=== PATIENT | male | born 1935 | race Caucasian/White ===

== ENCOUNTER 2020-10-01 10:11 | Outpatient (REF) | payer MEDICARE, SELFPAY ==
[2020-10-01 14:38] LABS: Alanine Aminotransferase 7 U/L (0-40); Anion Gap 14 (12-20); Blood Urea Nitrogen 18 mg/dL (9-16); Carbon Dioxide 25 mmol/L (22-29); Chloride 106 mmol/L (96-108); Cholesterol 177 mg/dL; Estimated Glomerular Filt Rate > 60; HDL Cholesterol 35 mg/dL; LDL Cholesterol Calculated 127 mg/dl; Potassium 4.4 mmol/L (3.3-5.1); Sodium 141 mmol/L (135-145); Triglycerides 76 mg/dL
== END 2020-10-01 10:12 | disposition home or self-care (01) ==
LOC: HO.10HDL 10:11
PROVIDERS: Visit Provider Family Medicine
DX: I10 Essential (primary) hypertension (principal); E78.00 Pure hypercholesterolemia, unspecified; Z79.899 Other long term (current) drug therapy
CPT/HCPCS: 36415; 80051; 80061; 82550; 82565; 84460; 84520

== ENCOUNTER 2021-04-21 12:22 | Outpatient (REF) | payer MEDICARE, SELFPAY ==
[2021-04-21 13:50] LABS: Hematocrit 33.6 % (42-52); Hemoglobin 10.3 g/dl (14.0-18.0); Mean Corpuscular HGB Conc 30.7 g/dl (31.0-36.0); Mean Corpuscular Hemoglobin 27.2 pg (27.0-33.0); Mean Corpuscular Volume 88.7 fL (80-98); Mean Platelet Volume 8.8 fL (9.4-12.4); Platelet Count 130 X10*3/uL (160-400); Red Blood Count 3.79 X10*6/uL (4.60-5.80); Red Cell Distribution Width 15.2 % (11.0-16.0)
[2021-04-21 13:55] LABS: WBC ABN SCTR FOR CBC 1
[2021-04-21 14:04] LABS: Alanine Aminotransferase < 6 U/L (0-40); Albumin Level 4.1 g/dL (3.5-5.0); Alkaline Phosphatase 74 U/L (39-117); Anion Gap 12 (12-20); Aspartate Amino Transferase 20 U/L (5-37); Bilirubin Total 0.8 mg/dL (0.0-1.0); Blood Urea Nitrogen 17 mg/dL (9-16); Calcium 9.5 mg/dL (8.4-10.2); Carbon Dioxide 26 mmol/L (22-29); Chloride 109 mmol/L (96-108); Estimated Glomerular Filt Rate > 60; Glucose Random 103 mg/dL (60-115); Potassium 5.2 mmol/L (3.3-5.1); Sodium 142 mmol/L (135-145)
[2021-04-21 14:47] LABS: Atypical Lymphs Percent Manual 4 % (0-6); Band Neutrophils Percent 1 % (3-5); Lymphocytes Percent Manual 73 % (20-40); Monocytes Percent Manual 7 % (2-11); Neutrophils Percent Manual 15 % (45-73)
[2021-04-21 14:49] LABS: Ovalocytes 1+ (5-14) /OIF; Platelet Estimate SLIGHTLY DECREASED (NORMAL); Platelet Morphology Comment NORMAL; RBC Morphology NOTED
[2021-04-21 14:50] LABS: White Blood Count 21.5 X10*3/uL (4.8-10.8)
[2021-04-21 14:52] LABS: Smudge Cells PRESENT
[2021-04-21 14:58] LABS: Atypical Lymph Absolute Manual 0.9 x10*3/uL; Lymphocytes Absolute Manual 15.7 X10*3/uL (0.6-4.8); Monocytes Absolute Manual 1.5 X10*3/uL (0.0-1.2); Neutrophils Absolute Manual 3.4 X10*3/uL (2.2-7.9)
[2021-04-22 11:33] LABS: Lactate Dehydrogenase 163 U/L (118-273)
[2021-04-23 13:36] LABS: Beta-2 Microglobulin, Serum 4.97 mg/L (< OR = 2.51)
== END 2021-04-21 12:23 | disposition home or self-care (01) ==
LOC: HO.LAB 12:22
PROVIDERS: PCP Family Medicine; Visit Provider Family Medicine
DX: E78.00 Pure hypercholesterolemia, unspecified (principal); I10 Essential (primary) hypertension; R63.4 Abnormal weight loss; Z79.899 Other long term (current) drug therapy
CPT/HCPCS: 36415; 80053; 82232; 82550; 83615; 85007; 85027; 88184; 88185

== ENCOUNTER 2021-09-29 12:34 | Outpatient (REF) | payer MEDICARE, SELFPAY ==
[2021-09-29 13:09] LABS: Hematocrit 30.3 % (42.0-52.0); Hemoglobin 8.7 g/dl (14.0-18.0); Mean Corpuscular HGB Conc 28.7 g/dl (31.0-36.0); Mean Corpuscular Hemoglobin 25.4 pg (27.0-33.0); Mean Corpuscular Volume 88.3 fL (80.0-98.0); Mean Platelet Volume 9.1 fL (9.4-12.4); NRBC Pct Auto 0.2 /100WBC (0.0-0.2); Platelet Count 120 X10*3/uL (160-400); Red Blood Count 3.43 X10*6/uL (4.60-5.80); Red Cell Distribution Width 16.8 % (11.0-16.0)
[2021-09-29 13:16] LABS: WBC ABN SCTR FOR CBC 1
[2021-09-29 13:35] LABS: Iron 29 mcg/dL (45-160); Percent Iron Saturation 8 % (15-50); Total Iron Binding Capacity 381 mcg/dL (228-428); Unsaturated Iron Binding 352 ug/dL
[2021-09-29 13:45] LABS: Band Neutrophils Percent 0 % (3-5); Eosinophils Percent Manual 1 % (0-4); Lymphocytes Percent Manual 82 % (20-40); Monocytes Percent Manual 2 % (2-11); Neutrophils Percent Manual 15 % (45-73)
[2021-09-29 13:47] LABS: Hypochromasia 1+ (5-14) /OIF; Ovalocytes 1+ (5-14) /OIF; Platelet Estimate DECREASED (NORMAL); Platelet Morphology Comment NORMAL; Polychromasia 1+ (0-2) /OIF; RBC Morphology NOTED; Smudge Cells PRESENT
[2021-09-29 13:48] LABS: Eosinophils Absolute Manual 0.3 X10*3/uL (0.0-0.4); Lymphocytes Absolute Manual 22.5 X10*3/uL (1.2-4.9); Monocytes Absolute Manual 0.5 X10*3/uL (0.1-1.2); Neutrophils Absolute Manual 4.1 X10*3/uL (2.0-8.3); White Blood Count 27.4 X10*3/uL (4.8-10.8)
== END 2021-09-29 12:35 | disposition home or self-care (01) ==
LOC: HO.LAB 12:34
PROVIDERS: PCP Family Medicine; Visit Provider Family Medicine
DX: C91.10 Chronic lymphocytic leukemia of B-cell type not having achieved remission (principal)
CPT/HCPCS: 36415; 83540; 85007; 85025; 85027

== ENCOUNTER 2022-01-27 08:54 | Outpatient (REF) | payer MEDICARE, SELFPAY ==
--- NOTE | ~2022-01-27 | US_ITS ---
EXAMINATION: US ABDOMEN COMPLETE CLINICAL INFORMATION: CLL and left upper quadrant mass. COMPARISON: Ultrasound abdomen complete dated 03/28/2015. CT abdomen and pelvis without and with contrast dated 12/15/2010. TECHNIQUE: Real-time imaging of the abdominal viscera. FINDINGS: PANCREAS: The head and body are normal. The tail is not well visualized due to bowel gas. ABDOMINAL AORTA: Normal in caliber. There is evidence of mild atherosclerotic disease. INFERIOR VENA CAVA: Visualized portions are normal. LIVER: Liver is normal in size and contour. Liver echotexture is slightly increased. There are numerous cysts. Largest measure 2.2 x 2.5 x 2.6 cm in the left lobe and 1.5 x 1.5 x 1.7 cm in the right lobe. Small calcification high in the dome of the liver. No other focal liver lesion.. There is no intrahepatic biliary duct dilatation seen. GALLBLADDER: The gallbladder is physiologically distended without evidence of stones, sludge, polyps, wall thickening or pericholecystic fluid. COMMON BILE DUCT: Normal in caliber measuring 0.36 cm in diameter. RIGHT KIDNEY: There is a 2 cm cyst in the lower pole. There are scattered echogenic foci seen throughout the right kidney. No hydronephrosis or renal calculi. The kidney measures 9.0 cm in maximum dimension. LEFT KIDNEY: There are scattered echogenic foci seen throughout the left kidney. No hydronephrosis. No renal calculi or focal parenchymal lesions. The kidney measures 11.5 cm in maximum dimension. SPLEEN: The spleen is enlarged. The spleen measures 22.1 cm in maximum dimension. There is a 0.6 x 0.6 x 0.8 cm echogenic lesion in the spleen. FREE FLUID: None. US/US abdomen complete IMPRESSION: Enlarged spleen and 7 mm echogenic lesion in the spleen. Slightly echogenic liver and multiple liver cysts. Small right renal cyst. Numerous echogenic foci throughout both kidneys questionable for small calcifications versus cyst wall interfaces from microcystic disease.
[2022-01-27 11:34] LABS: Hematocrit 31.4 % (42.0-52.0); Hemoglobin 9.5 g/dl (14.0-18.0); Mean Corpuscular HGB Conc 30.3 g/dl (31.0-36.0); Mean Corpuscular Hemoglobin 28.7 pg (27.0-33.0); Mean Corpuscular Volume 94.9 fL (80.0-98.0); Mean Platelet Volume 9.5 fL (9.4-12.4); NRBC Pct Auto 0.1 /100WBC (0.0-0.2); Platelet Count 112 X10*3/uL (160-400); Red Blood Count 3.31 X10*6/uL (4.60-5.80); Red Cell Distribution Width 15.6 % (11.0-16.0)
[2022-01-27 11:38] LABS: WBC ABN SCTR FOR CBC 1
[2022-01-27 11:49] LABS: Anion Gap 10 (12-20); Blood Urea Nitrogen 25 mg/dL (9-16); Carbon Dioxide 30 mmol/L (22-29); Chloride 106 mmol/L (96-108); Estimated Glomerular Filt Rate > 60; Iron 37 mcg/dL (45-160); Percent Iron Saturation 10 % (15-50); Potassium 4.9 mmol/L (3.3-5.1); Sodium 141 mmol/L (135-145); Total Iron Binding Capacity 363 mcg/dL (228-428); Unsaturated Iron Binding 326 ug/dL
[2022-01-27 11:56] LABS: Lymphocytes Percent Manual 89 % (20-40); Monocytes Percent Manual 7 % (2-11); Neutrophils Percent Manual 4 % (45-73)
[2022-01-27 11:58] LABS: RBC Morphology NOTED
[2022-01-27 11:59] LABS: Acanthocytes 1+ (0-2) /OIF; Macrocytosis 1+ (5-14) /OIF; Microcytosis 1+ (5-14) /OIF; Ovalocytes 1+ (5-14) /OIF; Polychromasia 1+ (0-2) /OIF; Tear Drop Cells 1+ (0-2) /OIF
[2022-01-27 12:00] LABS: Platelet Estimate DECREASED (NORMAL); Platelet Morphology Comment NORM
[2022-01-27 12:02] LABS: Lymphocytes Absolute Manual 30.5 X10*3/uL (1.2-4.9); Monocytes Absolute Manual 2.4 X10*3/uL (0.1-1.2)
[2022-01-27 12:07] LABS: White Blood Count 34.3 X10*3/uL (4.8-10.8)
[2022-01-27 14:37] LABS: Band Neutrophils Percent 0 % (3-5); Neutrophils Absolute Manual 1.4 X10*3/uL (2.0-8.3)
== END 2022-01-27 08:55 | disposition home or self-care (01) ==
LOC: HO.HMGCX 08:54
PROVIDERS: Visit Provider Family Medicine
DX: C91.10 Chronic lymphocytic leukemia of B-cell type not having achieved remission (principal); R19.02 Left upper quadrant abdominal swelling, mass and lump
CPT/HCPCS: 36415; 76700; 80051; 82565; 83540; 84520; 85007; 85027

== ENCOUNTER → 2022-02-18 14:14 | Outpatient (BNV) | payer MEDICARE, SELFPAY | PROVIDERS: PCP Family Medicine; Referring Provider Family Medicine; Visit Provider Internal Medicine Medical Oncology | DX: D47.9 Neoplasm of uncertain behavior of lymphoid, hematopoietic and related tissue, unspecified (principal) | CPT/HCPCS: 99204; 99213 ==

== ENCOUNTER → 2022-04-02 14:51 | Outpatient (REF) | payer MEDICARE, SELFPAY ==
--- NOTE | 2022-04-02 14:54 | CA_ITS ---
Transthoracic Echocardiogram Patient (Last, First, Middle): Rick Calles D Gender: Male Date of : 1935 Age: 86 Procedure Date: 04/02/2022 Procedure Type: Transthoracic Echocardiogram Location: OP Height: 167.64 cm Weight: 69.85 kg BSA: 1.79 m2 Heart Rate: 61 bpm BP: 118 / 72 mmHg Nurse Clinical: SB Referring MD: Rachid Rahman MD Symptoms: R01.1 SYSTOLIC AND DIASTOLIC MURMURS R/O /AT Study Quality: Adequate ECG Rhythm: Sinus Conclusions: - The left ventricular systolic function is normal. The visually estimated ejection fraction is between 65-70%. - There is mild calcification of the aortic valve. - There is mild mitral annular calcification. There is mild mitral valve regurgitation. 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 Findings Left Ventricle Normal left ventricular cavity size. There is normal left ventricular wall thickness. The left ventricular systolic function is normal. The visually estimated ejection fraction is between 65-70%. There is no evidence of regional wall motion abnormalities. Diastolic function is normal for age. Right Ventricle Normal right ventricular cavity size and systolic function. Atria The left atrium is mildly dilated. The right atrium is normal in size. Aortic Valve There is a normal trileaflet aortic valve. There is mild calcification of the aortic valve. There is no aortic valve stenosis. There is no aortic valve regurgitation. Mitral Valve There is mild mitral annular calcification. There is mild mitral valve regurgitation. There is no mitral valve stenosis. Pulmonic Valve The pulmonic valve is likely normal. Tricuspid Valve Normal tricuspid valve structure. There is trace tricuspid valve regurgitation. The pulmonary artery systolic pressure is normal. 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 Venous The inferior vena cava is normal in size and collapses less than 50% with inspiration. Pericardium/Pleural There is no evidence of pericardial effusion. Prior Study Comparison Changes noted compared to prior study dated: 07/09/2015. Increase in ascending aortic size. Measurements 2D Linear Measurements IVSd: 0.74 0.6-0.9/0.6-1.0 cm LVIDd: 5.29 3.9-5.3/4.2-5.9 cm LVIDd Index: 2.96 2.4-3.2/2.2-3.1 cm/m2 LVIDs: 3.19 2.0-3.6 cm LVPWd: 0.79 0.7-1.1 cm LA Diam: 4.50 2.7-3.8/3.0-4.0 cm LAIDs Index: 2.51 1.5-2.3 cm/m2 LV Mass: 175.22 67-162/88-224 g LV Mass Index: 97.89 43-95/49-115 g/m2 LVOT Diam: 2.20 3.0+(-)1.3 cm 2D Systolic Function EF 4C: 69.60 >55% EF 2C: 77.20 >55% EF BiP: 73.90 >55% Mitral Valve MV Pk E: 0.83 MV PK A: 0.99 MV Decel Time: 267.00 E/A: 0.80 E'Lateral: 6.96 E'Medial: 6.64 E/E' Med: 12.50 E/E' Lat: 12.00 PHT: 78.00 MVA PHT: 2.82 Decel Sterling: 3.12 Aortic Valve AoV Pk [place]: 2.00 AoV Mn [place]: 1.34 AoV VTI: 0.43 AoV Pk Grad: 16.00 Aov Mn Grad: 8.00 WILLAM Cont.VTI: 2.21 LVOT LVOT Pk [place]: 1.17 LVOT Mn [place]: 0.79 LVOT VTI: 0.25 LVOT Pk Grad: 5.00 LVOT Mn Grad: 3.00 LVOT Diam: 2.20 LVOT Area: 3.80 Diastolic Function MV Pk E: 0.83 MV Pk A: 0.99 E/A: 0.80 E'Medial: 6.64 E/E' Med: 12.50 E' Laterial: 6.96 E/E' Lat: 12.00 Right Ventricle TAPSE (mm): 22.10 TVS' [place]: 13.60 Tricuspid Valve TR Pk [place]: 2.62 TR Pk Grad: 27.00 RA Press: 8.00 RVSP: 35.00 Great Vessels Aorta Sinus of Valsalva: 4.00 2.0-3.5 cm Ao Asc: 4.00 2.1-3.4 cm Pulmonary Veins Pulm Vein S/D 1.80 Pulmonary Valve PV Pk Raleigh: 1.03 Peak PV Grad: 4.00 Updated in Other Vendor System with Status of Final Derik Don MD electronically signed on 04/03/2022 1:32:39 PM with status of Final
== END ==
LOC: HO.CARD 14:51
PROVIDERS: PCP Family Medicine; Visit Provider Family Medicine
DX: R01.1 Cardiac murmur, unspecified (principal)
CPT/HCPCS: 93306

== ENCOUNTER 2022-12-22 15:29 | Outpatient (REF) | payer MEDICARE, SELFPAY ==
[2022-12-22 16:08] LABS: Hemoglobin 9.5 g/dl (14.0-18.0); Mean Platelet Volume 9.7 fL (9.4-12.4); NRBC Pct Auto 0.3 /100WBC (0.0-0.2); PLT CLUMP 1
[2022-12-22 16:10] LABS: Hematocrit 31.6 % (42.0-52.0); Mean Corpuscular HGB Conc 30.1 g/dl (31.0-36.0); Mean Corpuscular Hemoglobin 30.1 pg (27.0-33.0); Red Blood Count 3.16 X10*6/uL (4.60-5.80); Red Cell Distribution Width 15.7 % (11.0-16.0)
[2022-12-22 16:17] LABS: WBC ABN SCTR FOR CBC 1
[2022-12-22 16:18] LABS: White Blood Count 32.3 X10*3/uL (4.8-10.8)
[2022-12-22 16:19] LABS: Platelet Count 99 X10*3/uL (160-400)
[2022-12-22 16:44] LABS: Atypical Lymph Absolute Manual 3.2 x10*3/uL; Atypical Lymphs Percent Manual 10 % (0-6); Basophils Abs Manual 0.3 X10*3/uL (0.0-0.2); Basophils Percent Manual 1 % (0-2); Lymphocytes Absolute Manual 23.3 X10*3/uL (1.2-4.9); Lymphocytes Percent Manual 72 % (20-40); Monocytes Absolute Manual 2.6 X10*3/uL (0.1-1.2); Monocytes Percent Manual 8 % (2-11); Neutrophils Percent Manual 9 % (45-73)
[2022-12-22 16:45] LABS: Macrocytosis 2+ (15-30) /OIF; RBC Morphology NOTED
[2022-12-22 16:46] LABS: Platelet Estimate DECREASED (NORMAL); Platelet Morphology Comment NORMAL; Polychromasia 2+ (3-5) /OIF
[2022-12-22 16:47] LABS: Band Neutrophils Percent 0 % (3-5); Neutrophils Absolute Manual 2.9 X10*3/uL (2.0-8.3)
[2022-12-22 16:52] LABS: Alanine Aminotransferase 11 U/L (0-40); Anion Gap 10 (12-20); Aspartate Amino Transferase 33 U/L (5-37); Blood Urea Nitrogen 18 mg/dL (9-16); Carbon Dioxide 30 mmol/L (22-29); Chloride 108 mmol/L (96-108); Estimated Glomerular Filt Rate > 60; Sodium 143 mmol/L (135-145)
== END 2022-12-22 15:30 | disposition home or self-care (01) ==
LOC: HO.LAB 15:29
PROVIDERS: PCP Family Medicine; Visit Provider Family Medicine
DX: I10 Essential (primary) hypertension (principal); E78.00 Pure hypercholesterolemia, unspecified; C91.10 Chronic lymphocytic leukemia of B-cell type not having achieved remission; Z79.899 Other long term (current) drug therapy
CPT/HCPCS: 36415; 80051; 82550; 82565; 84450; 84460; 84520; 85007; 85025; 85027

== ENCOUNTER 2023-03-23 08:42 | Emergency (ER) | payer MEDICARE, SELFPAY ==
--- NOTE | ~2023-03-23 | XR_ITS ---
EXAMINATION: XR BILATERAL HIPS WITH AP PELVIS CLINICAL INFORMATION: Pain status post fall. COMPARISON: None available. TECHNIQUE: AP view of the pelvis and single views of each hip were obtained. FINDINGS: The patient is status post bilateral hip arthroplasty showing good anatomic alignment and no evidence for hardware malfunction. Bilateral cerclage wires are intact as well. There is generalized osteopenia. No acute fractures seen. The soft tissues are unremarkable. XR/XR hips PAULA min 3V IMPRESSION: Generalized osteopenia without overt fracture or hardware abnormality.
--- NOTE | ~2023-03-23 | CT_ITS ---
EXAMINATION: CT HEAD WITHOUT CONTRAST CLINICAL INFORMATION: Status post fall with head trauma, rule out intracranial abnormality. COMPARISON: Head CT scan dated 05/16/2013. TECHNIQUE: Contiguous axial imaging was performed from the skull base to vertex without intravenous administration of contrast. Coronal and sagittal reformatted images were obtained. This CT examination was performed using dose optimization techniques as appropriate, variously including the following: *Automated exposure control *Adjustment of mA and/or kV according to patient size (this includes techniques or standardized protocols for targeted exams where dose is matched to indication/reason for exam; i.e. extremities or head) *Use of iterative reconstruction technique DLP: 724.32 mGy-cm FINDINGS: There is mild widening of the cortical sulci and associated ventriculomegaly. The lateral ventricles are symmetrical. The third and fourth ventricles are in their normal midline position. The basilar and prepontine cisterns are unremarkable. There is no acute intra or extracerebral abnormality. There is no mass effect or midline shift. Sections through the bony calvarium are unremarkable. The orbits are intact. The paranasal sinuses are clear. The mastoid air cells are clear. Mild anterior nasal septal deviation. CT/CT head/brain wo IV con IMPRESSION: No acute intracranial pathology.
--- NOTE | ~2023-03-23 | CT_ITS ---
EXAMINATION: CT HIP WITHOUT CONTRAST, LEFT CLINICAL INFORMATION: Left hip pain. Unable to bear weight. Left hip arthroplasty. COMPARISON: Left hip radiographs dated 03/08/2018 and 03/23/2023. TECHNIQUE: Multidetector volumetric imaging was obtained through the left hip without contrast material. Multiplanar reformatted images were submitted in coronal and sagittal planes. This CT examination was performed using dose optimization techniques as appropriate, variously including the following: *Automated exposure control *Adjustment of mA and/or kV according to patient size (this includes techniques or standardized protocols for targeted exams where dose is matched to indication/reason for exam; i.e. extremities or head) *Use of iterative reconstruction technique DLP: 183 mGy-cm. FINDINGS: Redemonstration of a left hip arthroplasty with a proximal femoral cerclage wire. No hardware fracture. No perihardware lucency to suggest loosening or infection. The femoral component is again noted to be asymmetrically seated within the acetabulum, slightly subluxed superolaterally. Findings are unchanged when compared to prior examinations and consistent with asymmetric wear. There is a nondisplaced, oblique fracture through the posterior aspect of the proximal femur in the region of the greater trochanter, new when compared to the prior examination and consistent with an acute fracture. The fracture gap measures up to 0.3 cm in greatest dimension. No acetabular fracture. No abnormal soft tissue mass or fluid collection. The visualized intrapelvic structures are grossly intact. CT/CT hip LT wo IV con IMPRESSION: 1. Nondisplaced, oblique fracture through the posterior aspect of the proximal femur in the region of the greater trochanter, new when compared to the prior examination. The fracture gap measures up to 0.3 cm in greatest dimension. 2. Left hip arthroplasty without evidence of hardware complication. The femoral component is again noted to be asymmetrically seated within the acetabulum, slightly subluxed superolaterally. Findings are unchanged when compared to prior examinations and consistent with asymmetric wear.
--- NOTE | ~2023-03-23 | CT_ITS ---
EXAMINATION: CT CERVICAL SPINE WITHOUT CONTRAST CLINICAL INFORMATION: Neck pain status post fall. COMPARISON: None available. TECHNIQUE: Multiple axial images of the cervical spine were obtained without the administration of intravenous contrast. Coronal and sagittal reformatted images were obtained. This CT examination was performed using dose optimization techniques as appropriate, variously including the following: *Automated exposure control *Adjustment of mA and/or kV according to patient size (this includes techniques or standardized protocols for targeted exams where dose is matched to indication/reason for exam; i.e. extremities or head) *Use of iterative reconstruction technique DLP: 462.07 mGy-cm FINDINGS: There is straightening of the normal cervical lordosis. Mild to moderate degenerative disc disease is seen at C4-C5 and C5-C6, more pronounced at C5-C6 with moderate anterior osteophyte formation. The vertebral bodies are intact. The odontoid process is intact with mild to moderate articulating degenerative changes. The facet joints are unremarkable. The spinous and transverse processes are intact. The cervical soft tissues are unremarkable. There is no lymphadenopathy. Moderate atherosclerosis is seen in the carotid bulbs bilaterally. There is no lymphadenopathy. Visualized lung apices are clear. CT/CT cervical spine wo IV con IMPRESSION: Multilevel degenerative changes as detailed above without acute abnormality.
[2023-03-23 08:45] VITALS: BP 146/77; PULSE 85; RESP 16; TEMP 36.8; O2SAT 96; BMI 23.4
[2023-03-23 09:01] VITALS: BP 143/82; PULSE 82; RESP 16; TEMP 37.4; O2SAT 95
[2023-03-23 09:17] VITALS: BP 143/82; PULSE 80; RESP 18; TEMP 37.4; O2SAT 96
--- NOTE | 2023-03-23 09:44 | PC.NURSE ---
per daughter, pt s/p fall this am in his drive way hitting his head. pt takes an asa daily. pt has had jr hip replacement at the age of 49yrs. daughter also states that the pt s/p fall last week. pt has a large area of purple/yellow discoloration to r hip. no bruising/hematoma noted to l hip. md at bedside pt/daughter aware of plan of care.
--- NOTE | 2023-03-23 10:04 | ED_ITS ---
HPI - Fall General Chief Complaint: General Medical Stated Complaint: Fall Head & Hip Pain Time Seen by Provider: 03/23/23 09:25 Source: patient, family and old records reviewed Mode of arrival: ambulatory Limitations: no limitations History of Present Illness HPI Narrative: 87 yo male with hx of CLL sees Dr. Chung, HTN, not on blood thinners most recently tripped over his cat last week injuring R hip had bruise but denied treatment today was trying to get to the car and tripped injuring head and L hip he now cannot bear weight on L hip. He finally agreed to treatment no LOC. He has most pain in L hip. He is not forthcoming with his falls as he does not want to be taken to the doctor. MD complaint: fall Onset (ago): week(s) (1) Fall from: standing Fall witnessed: yes, by family Place fall occurred: home Loss of consciousness: none Prolonged down time: no Symptoms prior to fall: none Context: tripped/slipped Location of injury: head and pelvis Severity: moderate Quality: dull Associated symptoms (after fall): unable to walk Related Data Home Medications Medication Instructions Recorded Confirmed amlodipine 5 mg-benazepril 20 mg 1 cap PO DAILY 02/18/22 01/21/23 capsule aspirin 81 mg tablet,delayed 81 mg PO DAILY 02/18/22 01/21/23 release atorvastatin 40 mg tablet 1 tab PO BEDTIME 02/18/22 01/21/23 hydrochlorothiazide 12.5 mg tablet 12.5 mg PO DAILY 02/18/22 01/21/23 iron 18 mg tablet 65 mg PO BID 02/18/22 01/21/23 multivitamin 1 tab PO DAILY 02/18/22 01/21/23 Allergies Allergy/AdvReac Type Severity Reaction Status Date / Time No Known Allergies Allergy Unverified 01/21/23 09:20 [No Known Allergies*] Review of Systems Review of Systems: Constitutional : No Fever, No Chills ENT/Mouth : No Ear Pain, No Hoarseness, No sore throat Eyes: No Eye Pain, No Swelling, No Redness, No Foreign Body Cardiovascular : No Chest Pain, No SOB Respiratory : No Cough, No Dyspnea Gastrointestinal : No Nausea, No Vomiting, No Diarrhea, No abdominal Pain Genitourinary : No Dysuria, No Hematuria Musculoskeletal : positive joint pain, No Myalgias, No Joint Swelling Skin : No Skin lacerations, No rash Neuro : No Weakness, No Numbness, No Loss of Consciousness, No Dizziness, No Headache Psych : No Anxiety/Panic, No Depression Heme/Lymph: no easy bruising, no Lymphadenopathy All other systems reviewed and are negative [facility] Past Medical History Attestation statement: The following information was validated with the patient. Medical History History of chronic lymphocytic leukemia Hyperlipidemia Hypertension Surgical History History of hip surgery History of rotator cuff surgery Family History Family History Brother Lung cancer Renal cancer Social History Social History Household Members: None Housing: House Are you a primary pet care worker to a significant other at home: No Do you presently have visiting nurse or other home services: Yes (daughters) Alcohol intake: never Patient Tobacco Use Status: Never used Tobacco Smoked in Last 30 Days: No Use of substances other than those prescribed or required for medical reasons: No Advance Directives: No service: No Current occupational status: retired Physical Exam Vital Signs: Vital Signs: Last Vital Signs Temp 98.9 F 03/23/23 14:09 Pulse 79 03/23/23 14:09 Resp 20 03/23/23 14:09 BP 145/73 H 03/23/23 14:09 Pulse Ox 98 03/23/23 14:09 O2 Del Method Room Air 03/23/23 14:09 BMI result Body Mass Index 23.4 Appearance: Alert. Oriented X3. No acute distress. Eyes: Pupils equal, round and reactive to light. ENT: Pharynx normal. Neck: Normal inspection. Neck supple. CVS: Normal heart rate and rhythm. Pulses normal. Respiratory: No respiratory distress. Breath sounds normal. Abdomen: Soft and nontender. Skin: Skin warm and dry. pale skin color. Normal skin turgor. Extremities: L hip ttp along joint itselt but no hematoma or infection noted. large bruise along R hip area but not tense and distal both legs he is NV intact Neuro: Oriented X 3. No motor deficit. No sensory deficit. Course Course Course Narrative: doubt fracture would need anything hardware intact. WB as tolerated will confirm with orthopedics Reevaluation(s) Reevaluation #1: did well with walker, feels okay to go home, they decline services at home. Medical Decision Making Medical Decision Making [facility] Narrative: 87 yo male with hx of CLL sees Dr. Chung, HTN, not on blood thinners here with c/o trip and fall one week ago R hip injury now with contusion just fell again today getting into car denies CP/SOB at this time has L hip pain and cannot bear weight at this time he did hit head but no LOC will obtain CT head/cspine given age cannot rule out will obtain xrays of both hips and if he cannot bear weight may need CT scan of L hip. Given falls and hx of CLL I am going to obtain basic labs. Differential Diagnosis Differential Diagnoses: The differential diagnosis associated with the presentation includes anemia, dehydration, FTT, fracture, head and neck trauma Admission/Observation Consideration of admission/observation: Escalation of care including admission/observation considered does not want acute rehab Consult Healthcare Provider Management of the patient was discussed with: Pl Sql Programmer discussed with orthopedics - walker with DANICA Lab Data [facility] Lab Attestation statement: I reviewed the patient's lab results. 03/23/23 10:37 03/23/23 10:37 Labs: Lab Results 03/23/23 03/23/23 03/23/23 Range/Units 10:36 10:37 10:37 WBC 38.8 H* (4.8-10.8) X10*3/uL RBC 2.52 L D (4.60-5.80) X10*6/uL Hgb 7.9 L D (14.0-18.0) g/dl Hct 25.8 L D (42.0-52.0) % MCV 102.4 H (80.0-98.0) fL MCH 31.3 (27.0-33.0) pg MCHC 30.6 L (31.0-36.0) g/dl RDW 16.8 H (11.0-16.0) % Plt Count 80 L (160-400) X10*3/uL MPV 9.1 L (9.4-12.4) fL Immature Gran % (Auto) Cancelled Neut % (Auto) Cancelled Lymph % (Auto) Cancelled Sibley % (Auto) Cancelled Eos % (Auto) Cancelled Baso % (Auto) Cancelled Lymph # (Auto) Cancelled Sibley # (Auto) Cancelled Eos # (Auto) Cancelled Baso # (Auto) Cancelled Abs Immat Gran (auto) Cancelled Absolute Neuts (auto) Cancelled Absolute Nucleated RBC 0.180 H (0.0-0.012) X10*3/uL Nucleated RBC % (auto) 0.5 H (0.0-0.2) /100WBC Neutrophils % (Manual) 15 L (45-73) % Band Neutrophils % 1 L (3-5) % Lymphocytes % (Manual) 74 H (20-40) % Atypical Lymphs % (Man) 1 (0-6) % Monocytes % (Manual) 7 (2-11) % Eosinophils % (Manual) 2 (0-4) % Basophils % (Manual) Metamyelocytes % Myelocytes % Promyelocytes % Blast Cells % (Manual) Plasma Cell % (Manual) Abs Neuts (Manual) 6.2 (2.0-8.3) X10*3/uL Lymphocytes # (Manual) 28.7 H (1.2-4.9) X10*3/uL Atyp Lymphs # (Manual) 0.4 x10*3/uL Monocytes # (Manual) 2.7 H (0.1-1.2) X10*3/uL Eosinophils # (Manual) 0.8 H (0.0-0.4) X10*3/uL Basophils # (Manual) Metamyelocytes # Myelocytes # Promyelocytes # Blast Cells # Plasma Cell # (Manual) Nucleated RBCs Hypersegmented Neuts Smudge Cells Toxic Granulation Toxic Vacuolation Dohle Bodies Mode Rods WBC Morphology Comment Platelet Estimate DECREASED (NORMAL) Large Platelets Giant Platelets Plt Morphology Comment NORMAL RBC Morphology NOTED Polychromasia Hypochromasia Basophilic Stippling Microcytosis Macrocytosis 1+ (5-14) /OIF Spherocytes Pappenheimer Bodies Sickle Cells Target Cells Tear Drop Cells Ovalocytes Stomatocytes Aguirre-Homecroft Bodies Lizeth Cells Acanthocytes (Spur) Rouleaux Schistocytes PT 12.7 (11.1-13.3) SEC INR 1.0 (0.9-1.1) Sodium (135-145) mmol/L Potassium (3.3-5.1) mmol/L Chloride (96-108) mmol/L Carbon Dioxide (22-29) mmol/L Anion Gap (12-20) BUN (9-16) mg/dL Creatinine (0.5-1.4) mg/dL Estim Creat Clear Calc Estimated GFR Random Glucose (60-115) mg/dL Calcium (8.4-10.2) mg/dL Total Bilirubin (0.0-1.0) mg/dL Direct Bilirubin (0.0-0.5) mg/dL AST (5-37) U/L ALT (0-40) U/L Alkaline Phosphatase (39-117) U/L Total Protein (6.5-8.0) g/dL Albumin (3.5-5.0) g/dL BCR/abl Interp & Reprt Cancelled 03/23/23 03/23/23 03/23/23 Range/Units 10:37 10:37 10:37 WBC Cancelled (4.8-10.8) X10*3/uL RBC Cancelled (4.60-5.80) X10*6/uL Hgb Cancelled (14.0-18.0) g/dl Hct Cancelled (42.0-52.0) % MCV Cancelled (80.0-98.0) fL MCH Cancelled (27.0-33.0) pg MCHC Cancelled (31.0-36.0) g/dl RDW Cancelled (11.0-16.0) % Plt Count Cancelled (160-400) X10*3/uL MPV Cancelled (9.4-12.4) fL Immature Gran % (Auto) Neut % (Auto) Lymph % (Auto) Sibley % (Auto) Eos % (Auto) Baso % (Auto) Lymph # (Auto) Sibley # (Auto) Eos # (Auto) Baso # (Auto) Abs Immat Gran (auto) Absolute Neuts (auto) Absolute Nucleated RBC Cancelled (0.0-0.012) X10*3/uL Nucleated RBC % (auto) Cancelled (0.0-0.2) /100WBC Neutrophils % (Manual) Cancelled (45-73) % Band Neutrophils % Cancelled (3-5) % Lymphocytes % (Manual) Cancelled (20-40) % Atypical Lymphs % (Man) Cancelled (0-6) % Monocytes % (Manual) Cancelled (2-11) % Eosinophils % (Manual) Cancelled (0-4) % Basophils % (Manual) Cancelled Metamyelocytes % Cancelled Myelocytes % Cancelled Promyelocytes % Cancelled Blast Cells % (Manual) Cancelled Plasma Cell % (Manual) Cancelled Abs Neuts (Manual) Cancelled (2.0-8.3) X10*3/uL Lymphocytes # (Manual) Cancelled (1.2-4.9) X10*3/uL Atyp Lymphs # (Manual) Cancelled x10*3/uL Monocytes # (Manual) Cancelled (0.1-1.2) X10*3/uL Eosinophils # (Manual) Cancelled (0.0-0.4) X10*3/uL Basophils # (Manual) Cancelled Metamyelocytes # Cancelled Myelocytes # Cancelled Promyelocytes # Cancelled Blast Cells # Cancelled Plasma Cell # (Manual) Cancelled Nucleated RBCs Cancelled Hypersegmented Neuts Cancelled Smudge Cells Cancelled Toxic Granulation Cancelled Toxic Vacuolation Cancelled Dohle Bodies Cancelled Mode Rods Cancelled WBC Morphology Comment Cancelled Platelet Estimate Cancelled (NORMAL) Large Platelets Cancelled Giant Platelets Cancelled Plt Morphology Comment Cancelled RBC Morphology Cancelled Polychromasia Cancelled Hypochromasia Cancelled Basophilic Stippling Cancelled Microcytosis Cancelled Macrocytosis Cancelled /OIF Spherocytes Cancelled Pappenheimer Bodies Cancelled Sickle Cells Cancelled Target Cells Cancelled Tear Drop Cells Cancelled Ovalocytes Cancelled Stomatocytes Cancelled Aguirre-Homecroft Bodies Cancelled Lizeth Cells Cancelled Acanthocytes (Spur) Cancelled Rouleaux Cancelled Schistocytes Cancelled PT (11.1-13.3) SEC INR (0.9-1.1) Sodium 140 Cancelled (135-145) mmol/L Potassium 4.2 Cancelled (3.3-5.1) mmol/L Chloride 107 Cancelled (96-108) mmol/L Carbon Dioxide 29 Cancelled (22-29) mmol/L Anion Gap 8 L Cancelled (12-20) BUN 15 Cancelled (9-16) mg/dL Creatinine 0.87 Cancelled (0.5-1.4) mg/dL Estim Creat Clear Calc 52.9 Cancelled Estimated GFR > 60 Cancelled Random Glucose 113 Cancelled (60-115) mg/dL Calcium 8.4 D Cancelled (8.4-10.2) mg/dL Total Bilirubin 0.7 Cancelled (0.0-1.0) mg/dL Direct Bilirubin 0.3 (0.0-0.5) mg/dL AST 30 Cancelled (5-37) U/L ALT 9 Cancelled (0-40) U/L Alkaline Phosphatase 82 Cancelled (39-117) U/L Total Protein 5.4 L Cancelled (6.5-8.0) g/dL Albumin 3.2 L Cancelled (3.5-5.0) g/dL BCR/abl Interp & Reprt 03/23/23 Range/Units 12:31 WBC (4.8-10.8) X10*3/uL RBC (4.60-5.80) X10*6/uL Hgb (14.0-18.0) g/dl Hct (42.0-52.0) % MCV (80.0-98.0) fL MCH (27.0-33.0) pg MCHC (31.0-36.0) g/dl RDW (11.0-16.0) % Plt Count (160-400) X10*3/uL MPV (9.4-12.4) fL Immature Gran % (Auto) Neut % (Auto) Lymph % (Auto) Sibley % (Auto) Eos % (Auto) Baso % (Auto) Lymph # (Auto) Sibley # (Auto) Eos # (Auto) Baso # (Auto) Abs Immat Gran (auto) Absolute Neuts (auto) Absolute Nucleated RBC (0.0-0.012) X10*3/uL Nucleated RBC % (auto) (0.0-0.2) /100WBC Neutrophils % (Manual) (45-73) % Band Neutrophils % (3-5) % Lymphocytes % (Manual) (20-40) % Atypical Lymphs % (Man) (0-6) % Monocytes % (Manual) (2-11) % Eosinophils % (Manual) (0-4) % Basophils % (Manual) Metamyelocytes % Myelocytes % Promyelocytes % Blast Cells % (Manual) Plasma Cell % (Manual) Abs Neuts (Manual) (2.0-8.3) X10*3/uL Lymphocytes # (Manual) (1.2-4.9) X10*3/uL Atyp Lymphs # (Manual) x10*3/uL Monocytes # (Manual) (0.1-1.2) X10*3/uL Eosinophils # (Manual) (0.0-0.4) X10*3/uL Basophils # (Manual) Metamyelocytes # Myelocytes # Promyelocytes # Blast Cells # Plasma Cell # (Manual) Nucleated RBCs Hypersegmented Neuts Smudge Cells Toxic Granulation Toxic Vacuolation Dohle Bodies Mode Rods WBC Morphology Comment Platelet Estimate (NORMAL) Large Platelets Giant Platelets Plt Morphology Comment RBC Morphology Polychromasia Hypochromasia Basophilic Stippling Microcytosis Macrocytosis /OIF Spherocytes Pappenheimer Bodies Sickle Cells Target Cells Tear Drop Cells Ovalocytes Stomatocytes Aguirre-Homecroft Bodies Lizeth Cells Acanthocytes (Spur) Rouleaux Schistocytes PT (11.1-13.3) SEC INR (0.9-1.1) Sodium 139 (135-145) mmol/L Potassium 4.3 (3.3-5.1) mmol/L Chloride 107 (96-108) mmol/L Carbon Dioxide 28 (22-29) mmol/L Anion Gap 8 L (12-20) BUN 15 (9-16) mg/dL Creatinine 0.87 (0.5-1.4) mg/dL Estim Creat Clear Calc 52.9 Estimated GFR > 60 Random Glucose 112 (60-115) mg/dL Calcium 8.4 (8.4-10.2) mg/dL Total Bilirubin 0.8 (0.0-1.0) mg/dL Direct Bilirubin (0.0-0.5) mg/dL AST 31 (5-37) U/L ALT 10 (0-40) U/L Alkaline Phosphatase 89 (39-117) U/L Total Protein 5.5 L (6.5-8.0) g/dL Albumin 3.2 L (3.5-5.0) g/dL BCR/abl Interp & Reprt Independent Interpretation I performed an independent interpretation of an: Plain X-Ray and CT Scan (no ICH, femur fracture but hardware intact) Radiology Impression Discussion of test interpretation with radiology: I have reviewed the radiologist's reading. Independent Historian Clinical information obtained from an independent historian. History obtained from or confirmed by: Other (family) External Record Review External record reviewed: Office record Prescription Management I considered prescription management with: Pain Medication (patient refused) Discharge Plan Discharge Clinical Impression: Femoral fracture Qualifiers: Encounter type: initial encounter Femur location: greater trochanter Fracture alignment: nondisplaced Laterality: left Patient Disposition: Home, Self-Care Instructions: Leg Fracture (ED) Additional Instructions: take tylenol as needed for pain. follow up with oncology about your labs today. use walker to get around - only minimal weight on toes until you follow up with orthopedics please call for next appointment return for worsening pain, fevers, increased swelling or pain. Prescriptions: No Action multivitamin Tablet 1 tab PO DAILY atorvastatin 40 mg tablet 1 tab PO BEDTIME aspirin 81 mg Tablet,Delayed Release (Dr/Ec) 81 mg PO DAILY amlodipine-benazepril 5-20 mg capsule 1 cap PO DAILY iron 18 mg Tablet 65 mg PO BID hydrochlorothiazide 12.5 mg Tablet 12.5 mg PO DAILY Referrals: Elroy Pisano PA-C [Physician Mental Hygienist] - (call to schedule appointment in next couple of weeks)
[2023-03-23 10:55] LABS: Hematocrit 25.8 % (42.0-52.0); Hemoglobin 7.9 g/dl (14.0-18.0); Mean Corpuscular HGB Conc 30.6 g/dl (31.0-36.0); Mean Corpuscular Hemoglobin 31.3 pg (27.0-33.0); Mean Corpuscular Volume 102.4 fL (80.0-98.0); Mean Platelet Volume 9.1 fL (9.4-12.4); NRBC Pct Auto 0.5 /100WBC (0.0-0.2); Red Blood Count 2.52 X10*6/uL (4.60-5.80); Red Cell Distribution Width 16.8 % (11.0-16.0)
[2023-03-23 11:00] LABS: Platelet Count 80 X10*3/uL (160-400); WBC ABN SCTR FOR CBC 1
[2023-03-23 11:04] LABS: Prothrombin Time 12.7 SEC (11.1-13.3)
[2023-03-23 11:12] VITALS: BP 141/63; PULSE 79; RESP 16; TEMP 37.6; O2SAT 94
[2023-03-23 11:14] LABS: Alanine Aminotransferase 9 U/L (0-40); Albumin Level 3.2 g/dL (3.5-5.0); Alkaline Phosphatase 82 U/L (39-117); Anion Gap 8 (12-20); Aspartate Amino Transferase 30 U/L (5-37); Bilirubin Direct 0.3 mg/dL (0.0-0.5); Bilirubin Total 0.7 mg/dL (0.0-1.0); Blood Urea Nitrogen 15 mg/dL (9-16); Calcium 8.4 mg/dL (8.4-10.2); Carbon Dioxide 29 mmol/L (22-29); Chloride 107 mmol/L (96-108); Creatinine Clr Calc Pharmacy 52.9; Estimated Glomerular Filt Rate > 60; Glucose Random 113 mg/dL (60-115); Potassium 4.2 mmol/L (3.3-5.1); Sodium 140 mmol/L (135-145); Total Protein 5.4 g/dL (6.5-8.0)
[2023-03-23 11:43] LABS: White Blood Count 38.8 X10*3/uL (4.8-10.8)
[2023-03-23 11:46] LABS: Atypical Lymph Absolute Manual 0.4 x10*3/uL; Atypical Lymphs Percent Manual 1 % (0-6); Band Neutrophils Percent 1 % (3-5); Eosinophils Absolute Manual 0.8 X10*3/uL (0.0-0.4); Eosinophils Percent Manual 2 % (0-4); Lymphocytes Absolute Manual 28.7 X10*3/uL (1.2-4.9); Lymphocytes Percent Manual 74 % (20-40); Macrocytosis 1+ (5-14) /OIF; Monocytes Absolute Manual 2.7 X10*3/uL (0.1-1.2); Monocytes Percent Manual 7 % (2-11); Neutrophils Absolute Manual 6.2 X10*3/uL (2.0-8.3); Neutrophils Percent Manual 15 % (45-73); Platelet Estimate DECREASED (NORMAL); Platelet Morphology Comment NORMAL; RBC Morphology NOTED
[2023-03-23 12:32] VITALS: BP 145/67; PULSE 77; RESP 18; TEMP 36.9; O2SAT 96
[2023-03-23 12:53] LABS: Alanine Aminotransferase 10 U/L (0-40); Albumin Level 3.2 g/dL (3.5-5.0); Alkaline Phosphatase 89 U/L (39-117); Anion Gap 8 (12-20); Aspartate Amino Transferase 31 U/L (5-37); Bilirubin Total 0.8 mg/dL (0.0-1.0); Blood Urea Nitrogen 15 mg/dL (9-16); Calcium 8.4 mg/dL (8.4-10.2); Carbon Dioxide 28 mmol/L (22-29); Chloride 107 mmol/L (96-108); Creatinine Clr Calc Pharmacy 52.9; Estimated Glomerular Filt Rate > 60; Glucose Random 112 mg/dL (60-115); Potassium 4.3 mmol/L (3.3-5.1); Sodium 139 mmol/L (135-145); Total Protein 5.5 g/dL (6.5-8.0)
[2023-03-23 14:09] VITALS: BP 145/73; PULSE 79; RESP 20; TEMP 37.2; O2SAT 98
--- NOTE | 2023-03-23 14:30 | MHC.EDTECH ---
Assisted pt out of bed and ambulated using walker per . Pt complained of left hip pain, otherwise stated he felt good. Dr. Perez made aware of this. Assisted Pt back to bed.
[2023-03-24 08:51] LABS: Iron 18 mcg/dL (45-160); Lactate Dehydrogenase 277 U/L (118-273); Percent Iron Saturation 7 % (15-50); Total Iron Binding Capacity 270 mcg/dL (228-428); Unsaturated Iron Binding 252 ug/dL
[2023-03-24 09:11] LABS: Ferritin 93 ng/mL (20-250)
== END 2023-03-23 14:50 | disposition home or self-care (01) ==
PROVIDERS: Internal Medicine Medical Oncology; Emergency Provider Emergency Medicine; PCP Family Medicine
DX: S72.112A Displaced fracture of greater trochanter of left femur, initial encounter for closed fracture (principal); R51.9 Headache, unspecified; M54.2 Cervicalgia; M25.552 Pain in left hip; M25.551 Pain in right hip; I10 Essential (primary) hypertension; W01.0XXA Fall on same level from slipping, tripping and stumbling without subsequent striking against object, initial encounter; Y93.9 Activity, unspecified; Y92.009 Unspecified place in unspecified non-institutional (private) residence as the place of occurrence of the external cause; Y99.9 Unspecified external cause status; Z79.899 Other long term (current) drug therapy
CPT/HCPCS: 36415; 70450; 72125; 73522; 73700; 80048; 80053; 80076; 82728; 83540; 83615; 85007; 85025; 85027; 85610; 99284

== ENCOUNTER 2023-03-31 12:54 | Outpatient (AMB) | payer MEDICARE, SELFPAY ==
--- NOTE | 2023-03-31 13:02 | MHC.OFFVIS ---
Intake Intake Visit Reasons: fc-Right Femoral fracture Intake Note: He had taken a fall on the left side last week in the driveway, as well as the week prior landing on the right side. History of bilateral MARITZA many years ago. He has pain in the left hip. Allergies No Known Allergies [No Known Allergies*] Allergy (Verified 03/31/23 13:42) HPI fc-Right Femoral fracture HPI Details Rick is an 87 year old man who presents to discuss his left hip fracture He has a Hx of bilateral MARITZA many years ago. He fell on 03/23/23 when climbing into his car, which resulted in a hip fracture. He was seen in the ED and referred here. He has difficulty and pain with weight-bearing activities and walking is difficult. He walks using a walker and this causes him pain. He declined any pain medication from the ED. He has some issues with bleeding and is on iron supplements. He has a Hx of falls in the past. He is seen with his two daughters today. [facility] Medical History History of chronic lymphocytic leukemia Hyperlipidemia Hypertension Surgical History History of hip surgery History of rotator cuff surgery Family History Brother Lung cancer Renal cancer Social History Household Members: None Housing: House Are you a primary youth care worker to a significant other at home: No Do you presently have visiting nurse or other home services: Yes (daughters) Alcohol intake: never Patient Tobacco Use Status: Never used Tobacco Advance Directives: No Advance Directives Information Provided: Yes service: No Current occupational status: retired Review of Systems Const All systems reviewed & are unremarkable except as noted in HPI and below Physical Exam Const General: no acute distress, alert and awake Orientation/consciousness: patient oriented x3 HEENT Head: Yes normocephalic and Yes atraumatic Eyes EOM: EOMs intact bilaterally Resp Effort & Inspection: normal respiratory effort and able to speak in complete sentences Cardio Jugular venous distension: no JVD Skin General skin exam: turgor normal Rashes: no rashes Neuro General: patient oriented x3 Extrem Other: Left Hip: Mild vague tenderness with impingement testing Tenderness over greater trochanter over left hip Psych Appearance: grossly normal Affect: normal affect Attitude: cooperative Results Reviewed Results Reviewed: I personally reviewed relevant CT images 1. Nondisplaced, oblique fracture through the posterior aspect of the proximal femur in the region of the greater trochanter, new when compared to the prior examination. The fracture gap measures up to 0.3 cm in greatest dimension. 2. Left hip arthroplasty without evidence of hardware complication. The femoral component is again noted to be asymmetrically seated within the acetabulum, slightly subluxed superolaterally. Findings are unchanged when compared to prior examinations and consistent with asymmetric wear. Assessment & Plan Assessment & Plan (1) Nondisplaced fracture of left femur: Code(s): S72.92XA - Unspecified fracture of left femur, initial encounter for closed fracture Plan: This is an 87 year old man with a non-displaced fracture of the left femur from a fall, DOI: 03/23/23. He has a hx of bilateral MARITZA many years ago, and other medical comorbidities. He has pain with weight-bearing and difficulty ambulating. He ambulates with an assistive walker at home. I discussed his diagnosis and treatment options. No surgical intervention warranted. I recommend he WBAT with assistive devices. He can follow up prn. (2) History of total left hip arthroplasty: Code(s): Z96.642 - Presence of left artificial hip joint (3) History of total right hip arthroplasty: Code(s): Z96.641 - Presence of right artificial hip joint Plan Scribed for Angelo Figueroa MD by Brian Wetzel, medical management trainer, on 03/31/23 at 1:15 PM, EST. Orders: Orders XR pelvis 1-2V 03/31/23 M25.559 - Pain in unspecified hip Coding Level of Care Code Est Pt Level 4 (35507) Diagnoses Nondisplaced fracture of left femur S72.92XA History of total left hip arthroplasty Z96.642 History of total right hip arthroplasty Z96.641
== END 2023-03-31 13:33 | disposition home or self-care (01) ==
PROVIDERS: PCP Family Medicine; Visit Provider Orthopaedic Surgery
DX: S72.92XA Unspecified fracture of left femur, initial encounter for closed fracture (principal); Z96.643 Presence of artificial hip joint, bilateral
CPT/HCPCS: 99213

== ENCOUNTER 2023-03-31 12:54 | Outpatient (REF) | payer MEDICARE, SELFPAY ==
--- NOTE | ~2023-03-31 | XR_ITS ---
EXAMINATION: XR PELVIS CLINICAL INFORMATION: Hip pain. COMPARISON: CT left hip and left hip radiographs dated 03/23/2023. TECHNIQUE: AP views of the pelvis are submitted. 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 There are intact bilateral proximal femoral cerclage wires. No right periprosthetic fracture. There is a stable mildly displaced fracture fragment is involving the greater trochanter of the proximal left femur. The sacroiliac joints are symmetric and well-maintained. The pubic symphysis is intact. There are calcified buttock granulomas. XR/XR pelvis 1-2V IMPRESSION: There are intact bilateral hip arthroplasties. No hardware failure or loosening is seen. There is a stable mildly displaced fracture of the greater trochanter of the proximal left femur.
== END 2023-03-31 12:55 | disposition home or self-care (01) ==
LOC: HO.HOSX 12:54
PROVIDERS: PCP Family Medicine; Visit Provider Orthopaedic Surgery
DX: S72.92XA Unspecified fracture of left femur, initial encounter for closed fracture (principal); Z96.643 Presence of artificial hip joint, bilateral
CPT/HCPCS: 72170

== ENCOUNTER 2023-03-31 13:38 | Emergency (ER) | payer MEDICARE, SELFPAY ==
--- NOTE | ~2023-03-31 | CT_ITS ---
EXAMINATION: CT HEAD WITHOUT CONTRAST CLINICAL INFORMATION: Multiple falls, altered mental status. COMPARISON: CT head 03/23/2023. TECHNIQUE: Contiguous axial imaging was performed from the skull base to vertex without intravenous administration of contrast. This CT examination was performed using dose optimization techniques as appropriate, variously including the following: *Automated exposure control *Adjustment of mA and/or kV according to patient size (this includes techniques or standardized protocols for targeted exams where dose is matched to indication/reason for exam; i.e. extremities or head) *Use of iterative reconstruction technique DLP: 648 mGy-cm FINDINGS: Mixed high and low density bilateral hemicranial subdural hematomas measuring up to 1 cm on the left side and 0.8 cm on the right side. Additional mixed attenuating subdural hematomas along the interhemispheric falx as well as left posterior cerebellar leaflet (coronal image 169 series 7). No evidence of edematous territorial infarction or acute intraparenchymal hemorrhage. A few foci of hypoattenuation in the periventricular and deep white matter are consistent with mild microangiopathy. Martinez-white matter differentiation is preserved. Proportional prominence of the ventricles and sulcal spaces. No evidence for obstructive hydrocephalus. No abnormal mass effect or midline shift. No displaced calvarial fracture. No acute soft tissue abnormalities. The mastoid air cells and paranasal sinuses are clear. CT/CT head/brain wo IV con IMPRESSION: Multifocal mixed attenuating subdural hematomas suggesting combination of subacute and acute blood products. No significant midline shift or evidence of obstructive hydrocephalus. This critical result was discussed with at 03/31/2023 4:58 PM and it was ascertained that the content and urgency of the report was understood at the time of direct communication.
--- NOTE | ~2023-03-31 | XR_ITS ---
EXAMINATION: XR CHEST AP PORTABLE 3:06 PM CLINICAL INFORMATION: Decreased breath sounds at bases COMPARISON: None available. TECHNIQUE: Frontal view of the chest was obtained. FINDINGS: No significant abnormality is noted involving the heart, lungs, or mediastinum. Degenerative changes of both shoulders are noted. XR/XR chest 1V IMPRESSION: No acute cardiopulmonary disease.
--- NOTE | 2023-03-31 13:42 | ECG_ITS ---
Test Reason : PAIN Blood Pressure : / mmHG Vent. 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
[2023-03-31 13:43] VITALS: BP 134/68; PULSE 74; RESP 19; TEMP 36.6; O2SAT 98; BMI 24.9
--- NOTE | 2023-03-31 13:46 | ED_ITS ---
HPI - General Adult General Chief complaint: General Medical Stated complaint: multiple issues Time Seen by Provider: 03/31/23 13:51 Source: patient and family Mode of arrival: ambulatory Limitations: no limitations History of Present Illness HPI narrative: Patient comes to the emergency room accompanied by his 2 daughters. Patient came in from Dr. Rahman's office, with the patient's PCP. Patient went today for a follow-up visit. Last week, on March 23 patient sustained a fall. Patient came to the emergency room to [facility]. Patient was diagnosed with a nondisplaced oblique fracture of the proximal femur. Patient was discharged home. A head CT was done in the ED which showed no acute abnormalities. The next day, the family reports that the patient fell again. They were able to help him up. They did not come to the hospital. Over the course of the week, the family has noted that the patient has gradually become more confused, weak, decreased p.o. intake. Today they went to the PCPs office and they were asked to come to emergency room for further evaluation. Also, it was noted that on March 23, patient's hemoglobin and hematocrit were lower than patient's baseline. Patient does have CLL. Patient states that he feels well, denies any headache or neck pain. Patient does have mild discomfort on the left leg. Related Data Home Medications Medication Instructions Recorded Confirmed amlodipine 5 mg-benazepril 20 mg 1 cap PO DAILY 02/18/22 01/21/23 capsule aspirin 81 mg tablet,delayed 81 mg PO DAILY 02/18/22 01/21/23 release atorvastatin 40 mg tablet 1 tab PO BEDTIME 02/18/22 01/21/23 hydrochlorothiazide 12.5 mg tablet 12.5 mg PO DAILY 02/18/22 01/21/23 iron 18 mg tablet 65 mg PO BID 02/18/22 01/21/23 multivitamin 1 tab PO DAILY 02/18/22 01/21/23 Allergies Allergy/AdvReac Type Severity Reaction Status Date / Time No Known Allergies Allergy Verified 03/31/23 13:42 [No Known Allergies*] Review of Systems Review of Systems: Patient states that he feels completely normal, just complaining of mild pain in the left hip. Per family, patient has dementia, he is poor historian and minimizes his symptoms, patient's history is not reliable. Yes Unobtainable due to mental condition [facility] Past Medical History Medical History History of chronic lymphocytic leukemia Hyperlipidemia Hypertension Surgical History History of hip surgery History of rotator cuff surgery Family History Family History Brother Lung cancer Renal cancer Social History Social History Household Members: None Housing: House Are you a primary care tech to a significant other at home: No Do you presently have visiting nurse or other home services: Yes (daughters) Alcohol intake: never Patient Tobacco Use Status: Never used Tobacco Advance Directives: No Advance Directives Information Provided: Yes service: No Current occupational status: retired Physical Exam ED Vital Signs: Vital Signs - 24 hr 03/31/23 13:43 03/31/23 14:53 03/31/23 16:52 Temperature 98 F 99.0 F Pulse Rate 74 75 78 Respiratory Rate 19 18 18 Blood Pressure 134/68 141/70 H 129/65 Pulse Oximetry 98 96 95 Oxygen Delivery Method Room Air Room Air Room Air 03/31/23 16:58 Temperature 99.4 F Pulse Rate Respiratory Rate Blood Pressure Pulse Oximetry Oxygen Delivery Method BMI result Body Mass Index 24.9 Const Other: Appearance: Alert. Oriented X2. No acute distress. Well-appearing Eyes: Pupils equal, round and reactive to light. ENT: Pharynx normal. Neck: Normal inspection. Neck supple. No lymph nodes noted. No crepitus CVS: Normal heart rate and rhythm. Pulses normal. Normal S1 and S2 Respiratory: No respiratory distress. Breath sounds normal. No Wheezing. No rales Abdomen: Soft and nontender. No rigidity. No distention. Skin: Skin warm and dry. Normal skin color. Normal skin turgor. Healing ecchymosis on both hips Extremities: No lower extremity edema. No Lacerations. No Rash Neuro: Oriented X 2. No motor deficit. No sensory deficit. Moving all extremities. No slurred speech. CN 2 through 12 grossly intact Psych: calm, cooperative, normal affect Course Course Course Narrative: RME- 87 year old male with past medical history significant for dementia, CLL, recent hip fracture presents for evaluation of failure to thrive. There is also some concern for pleural effusion. The patient presents from outpatient PCP office. Plan for labs and imaging Medications Administered Discontinued Medications Generic Name Dose Route Start Last Admin Trade Name Ephraim PRN Reason Stop Dose Admin Ceftriaxone Sodium 1 gm/ 50 mls @ 100 mls/hr 03/31/23 17:14 03/31/23 18:07 Sodium Chloride IV 03/31/23 17:43 Infused ONCE ONE Infusion Medical Decision Making Medical Decision Making [facility] Narrative: -I spoke with patient's PCP Dr. Rahman, patient's hemoglobin dropped below [facility]'s average on March 23, today was repeated, the hemoglobin actually improved, today 8.7. -also, PCP a concerns with possible urine retention. Patient has been urinating here in the emergency room, no urine retention, less than 200 mL of urine in bladder scan -patient's family at bedside, confirmed that the patient has been confused, patient thinks that we are in the middle of winter, family noticed that he sits almost motionless for 2- 3 hours at the time, awake, seems confused -patient's white blood cell count is 45.1. Patient has CLL, being followed by Dr. Chung at [facility]. -my interpretation of labs, patient has leukocyte esterase present in the urine. Given that the patient has been falling, we will go ahead and treat as a UTI, patient given now 1 time dose of ceftriaxone IV -my interpretation of CT scan of the head: Bilateral subdural hematomas. I discussed the CT scan findings with our radiologist, patient has a 1 cm subdural hematoma on the left and a 0.8 cm subdural hematoma on the right. Additionally, patient has mixed subdural hematomas along the interhemispheric falx as well as the left posterior cerebellar leaflet. No mass effect or midline shift -guaiac test for occult blood is negative -patient is not on blood thinners -I discussed the above-mentioned with the patient and his 2 daughters who are the patient's healthcare proxy. Patient is DNR DNI but they are agreeable to transfer the patient, and if neurosurgery is needed, they are agreeable to proceed with surgery. -patient is awake and alert, conversing with his daughters. other than being confused, patient is well-appearing. Blood pressure 129/65, heart rate 78, respirations 18 , oxygen saturation 95-98% on room air, temperature 99.4 degrees. -I discussed the patient with Dr. Mack from [facility] ED, patient accepted, patient will be going ED to ED Differential Diagnosis Differential Diagnoses: The differential diagnosis associated with the presentation includes (Subdural hematoma, intracranial bleed, UTI) Admission/Observation Consideration of admission/observation: Escalation of care including admission/observation considered Consult Healthcare Provider Management of the patient was discussed with: Watch Engineer Lab Data [facility] Lab Attestation statement: I reviewed the patient's lab results. 03/31/23 14:18 03/31/23 14:18 Labs: Lab Results 03/31/23 03/31/23 03/31/23 Range/Units 14:18 14:18 14:18 WBC 45.1 H* (4.8-10.8) X10*3/uL RBC 2.84 L (4.60-5.80) X10*6/uL Hgb 8.7 L (14.0-18.0) g/dl Hct 28.7 L (42.0-52.0) % MCV 101.1 H (80.0-98.0) fL MCH 30.6 (27.0-33.0) pg MCHC 30.3 L (31.0-36.0) g/dl RDW 16.1 H (11.0-16.0) % Plt Count 133 L D (160-400) X10*3/uL MPV 9.2 L (9.4-12.4) fL Immature Gran % (Auto) Cancelled Neut % (Auto) Cancelled Lymph % (Auto) Cancelled [place] % (Auto) Cancelled Eos % (Auto) Cancelled Baso % (Auto) Cancelled Lymph # (Auto) Cancelled [place] # (Auto) Cancelled Eos # (Auto) Cancelled Baso # (Auto) Cancelled Abs Immat Gran (auto) Cancelled Absolute Neuts (auto) Cancelled Absolute Nucleated RBC 0.170 H (0.0-0.012) X10*3/uL Nucleated RBC % (auto) 0.4 H (0.0-0.2) /100WBC Neutrophils % (Manual) 11 L (45-73) % Band Neutrophils % 1 L (3-5) % Lymphocytes % (Manual) 82 H (20-40) % Atypical Lymphs % (Man) 4 (0-6) % Monocytes % (Manual) 2 (2-11) % Abs Neuts (Manual) 5.4 (2.0-8.3) X10*3/uL Lymphocytes # (Manual) 37.0 H (1.2-4.9) X10*3/uL Atyp Lymphs # (Manual) 1.8 x10*3/uL Monocytes # (Manual) 0.9 (0.1-1.2) X10*3/uL Smudge Cells PRESENT Platelet Estimate SLIGHTLY DECREASED (NORMAL) Plt Morphology Comment NORMAL RBC Morphology NOTED Polychromasia 1+ (0-2) /OIF Macrocytosis 1+ (5-14) /OIF PT (11.1-13.3) SEC INR (0.9-1.1) APTT (26.0-36.4) SEC Sodium 139 (135-145) mmol/L Potassium 4.6 (3.3-5.1) mmol/L Chloride 105 (96-108) mmol/L Carbon Dioxide 28 (22-29) mmol/L Anion Gap 11 L (12-20) BUN 20 H (9-16) mg/dL Creatinine 1.07 (0.5-1.4) mg/dL Estim Creat Clear Calc 39.9 Estimated GFR > 60 Random Glucose 105 (60-115) mg/dL Calcium 9.1 D (8.4-10.2) mg/dL Total Bilirubin 0.5 (0.0-1.0) mg/dL AST 32 (5-37) U/L ALT 10 (0-40) U/L Alkaline Phosphatase 88 (39-117) U/L B-Natriuretic Peptide 290 H (<100) pg/mL Total Protein 5.8 L (6.5-8.0) g/dL Albumin 3.3 L (3.5-5.0) g/dL Lipase 79 H (8-78) U/L Urine Color Urine Appearance Urine pH (5.0-9.0) Ur Specific [place] (1.005-1.025) Urine Protein (Neg-Trace) mg/dL Urine Glucose (UA) (Negative) mg/dL Urine Ketones (Negative) mg/dL Urine Blood (Negative) Urine Nitrite (Negative) Ur Leukocyte Esterase (Negative) Urine RBC (0-2) /HPF Urine WBC (0-5) /HPF Ur Squamous Epith Cells (0-2) /HPF Urine Bacteria (None Seen) Hyaline Casts (0-2) /LPF Stool Occult Blood (NEGATIVE) Blood Type Antibody Screen 03/31/23 03/31/23 03/31/23 Range/Units 14:19 14:19 14:37 WBC (4.8-10.8) X10*3/uL RBC (4.60-5.80) X10*6/uL Hgb (14.0-18.0) g/dl Hct (42.0-52.0) % MCV (80.0-98.0) fL MCH (27.0-33.0) pg MCHC (31.0-36.0) g/dl RDW (11.0-16.0) % Plt Count (160-400) X10*3/uL MPV (9.4-12.4) fL Immature Gran % (Auto) Neut % (Auto) Lymph % (Auto) [place] % (Auto) Eos % (Auto) Baso % (Auto) Lymph # (Auto) [place] # (Auto) Eos # (Auto) Baso # (Auto) Abs Immat Gran (auto) Absolute Neuts (auto) Absolute Nucleated RBC (0.0-0.012) X10*3/uL Nucleated RBC % (auto) (0.0-0.2) /100WBC Neutrophils % (Manual) (45-73) % Band Neutrophils % (3-5) % Lymphocytes % (Manual) (20-40) % Atypical Lymphs % (Man) (0-6) % Monocytes % (Manual) (2-11) % Abs Neuts (Manual) (2.0-8.3) X10*3/uL Lymphocytes # (Manual) (1.2-4.9) X10*3/uL Atyp Lymphs # (Manual) x10*3/uL Monocytes # (Manual) (0.1-1.2) X10*3/uL Smudge Cells Platelet Estimate (NORMAL) Plt Morphology Comment RBC Morphology Polychromasia /OIF Macrocytosis /OIF PT 11.3 (11.1-13.3) SEC INR 0.9 (0.9-1.1) APTT 26.1 (26.0-36.4) SEC Sodium (135-145) mmol/L Potassium (3.3-5.1) mmol/L Chloride (96-108) mmol/L Carbon Dioxide (22-29) mmol/L Anion Gap (12-20) BUN (9-16) mg/dL Creatinine (0.5-1.4) mg/dL Estim Creat Clear Calc Estimated GFR Random Glucose (60-115) mg/dL Calcium (8.4-10.2) mg/dL Total Bilirubin (0.0-1.0) mg/dL AST (5-37) U/L ALT (0-40) U/L Alkaline Phosphatase (39-117) U/L B-Natriuretic Peptide (<100) pg/mL Total Protein (6.5-8.0) g/dL Albumin (3.5-5.0) g/dL Lipase (8-78) U/L Urine Color Urine Appearance Urine pH (5.0-9.0) Ur Specific [place] (1.005-1.025) Urine Protein (Neg-Trace) mg/dL Urine Glucose (UA) (Negative) mg/dL Urine Ketones (Negative) mg/dL Urine Blood (Negative) Urine Nitrite (Negative) Ur Leukocyte Esterase (Negative) Urine RBC (0-2) /HPF Urine WBC (0-5) /HPF Ur Squamous Epith Cells (0-2) /HPF Urine Bacteria (None Seen) Hyaline Casts (0-2) /LPF Stool Occult Blood NEGATIVE (NEGATIVE) Blood Type O Positive Antibody Screen NEGATIVE 03/31/23 Range/Units 16:18 WBC (4.8-10.8) X10*3/uL RBC (4.60-5.80) X10*6/uL Hgb (14.0-18.0) g/dl Hct (42.0-52.0) % MCV (80.0-98.0) fL MCH (27.0-33.0) pg MCHC (31.0-36.0) g/dl RDW (11.0-16.0) % Plt Count (160-400) X10*3/uL MPV (9.4-12.4) fL Immature Gran % (Auto) Neut % (Auto) Lymph % (Auto) [place] % (Auto) Eos % (Auto) Baso % (Auto) Lymph # (Auto) [place] # (Auto) Eos # (Auto) Baso # (Auto) Abs Immat Gran (auto) Absolute Neuts (auto) Absolute Nucleated RBC (0.0-0.012) X10*3/uL Nucleated RBC % (auto) (0.0-0.2) /100WBC Neutrophils % (Manual) (45-73) % Band Neutrophils % (3-5) % Lymphocytes % (Manual) (20-40) % Atypical Lymphs % (Man) (0-6) % Monocytes % (Manual) (2-11) % Abs Neuts (Manual) (2.0-8.3) X10*3/uL Lymphocytes # (Manual) (1.2-4.9) X10*3/uL Atyp Lymphs # (Manual) x10*3/uL Monocytes # (Manual) (0.1-1.2) X10*3/uL Smudge Cells Platelet Estimate (NORMAL) Plt Morphology Comment RBC Morphology Polychromasia /OIF Macrocytosis /OIF PT (11.1-13.3) SEC INR (0.9-1.1) APTT (26.0-36.4) SEC Sodium (135-145) mmol/L Potassium (3.3-5.1) mmol/L Chloride (96-108) mmol/L Carbon Dioxide (22-29) mmol/L Anion Gap (12-20) BUN (9-16) mg/dL Creatinine (0.5-1.4) mg/dL Estim Creat Clear Calc Estimated GFR Random Glucose (60-115) mg/dL Calcium (8.4-10.2) mg/dL Total Bilirubin (0.0-1.0) mg/dL AST (5-37) U/L ALT (0-40) U/L Alkaline Phosphatase (39-117) U/L B-Natriuretic Peptide (<100) pg/mL Total Protein (6.5-8.0) g/dL Albumin (3.5-5.0) g/dL Lipase (8-78) U/L Urine Color Yellow Urine Appearance Clear Urine pH 5.5 (5.0-9.0) Ur Specific [place] 1.020 (1.005-1.025) Urine Protein Negative (Neg-Trace) mg/dL Urine Glucose (UA) Negative (Negative) mg/dL Urine Ketones Negative (Negative) mg/dL Urine Blood Negative (Negative) Urine Nitrite Negative (Negative) Ur Leukocyte Esterase Trace H (Negative) Urine RBC 3-5 H (0-2) /HPF Urine WBC 0-5 (0-5) /HPF Ur Squamous Epith Cells 0-2 (0-2) /HPF Urine Bacteria None Seen (None Seen) Hyaline Casts 3-5 (0-2) /LPF Stool Occult Blood (NEGATIVE) Blood Type Antibody Screen Independent Interpretation I performed an independent interpretation of an: EKG (My interpretation of EKG: Normal sinus rhythm with occasional PVCs, heart rate 73, no ST segment depression or elevation, no T-wave inversion, QTC 429) Radiology Impression Discussion of test interpretation with radiology: I discussed test interpretation with the radiologist Radiologist Impression: FINDINGS: Mixed high and low density bilateral hemicranial subdural hematomas measuring up to 1 cm on the left side and 0.8 cm on the right side. Additional mixed attenuating subdural hematomas along the interhemispheric falx as well as left posterior cerebellar leaflet (coronal image 169 series 7). No evidence of edematous territorial infarction or acute intraparenchymal hemorrhage. A few foci of hypoattenuation in the periventricular and deep white matter are consistent with mild microangiopathy. Martinez-white matter differentiation is preserved. Proportional prominence of the ventricles and sulcal spaces. No evidence for obstructive hydrocephalus. No abnormal mass effect or midline shift. No displaced calvarial fracture. No acute soft tissue abnormalities. The mastoid air cells and paranasal sinuses are clear. ? CT/CT head/brain wo IV con IMPRESSION: Multifocal mixed attenuating subdural hematomas suggesting combination of subacute and acute blood products. No significant midline shift or evidence of obstructive hydrocephalus. FINDINGS: No significant abnormality is noted involving the heart, lungs, or mediastinum. Degenerative changes of both shoulders are noted. XR/XR chest 1V IMPRESSION: No acute cardiopulmonary disease Independent Historian Clinical information obtained from an independent historian. History obtained from or confirmed by: Other (Daughters and patient's PCP) External Record Review External record reviewed: Prior outpatient radiology Chronic Conditions Patient?s care impacted by: Hypertension and Other (Dementia, CLL) Critical Care Time Critical Care Time Critical Care Time: Yes Total Critical Care Time: 90 Attestation: I have personally provided critical care time. Time includes review of lab data, radiology results, discussion with consultants, and monitoring for potential decompensation. Intervention performed as documented. Discharge Plan Discharge Clinical Impression: Bilateral subdural hematomas, Acute UTI Patient Disposition: [facility] Transfer Details: [facility], ED to ED Prescriptions: No Action multivitamin Tablet 1 tab PO DAILY atorvastatin 40 mg tablet 1 tab PO BEDTIME aspirin 81 mg Tablet,Delayed Release (Dr/Ec) 81 mg PO DAILY amlodipine-benazepril 5-20 mg capsule 1 cap PO DAILY iron 18 mg Tablet 65 mg PO BID hydrochlorothiazide 12.5 mg Tablet 12.5 mg PO DAILY
[2023-03-31 14:39] LABS: Hematocrit 28.7 % (42.0-52.0); Hemoglobin 8.7 g/dl (14.0-18.0); Mean Corpuscular HGB Conc 30.3 g/dl (31.0-36.0); Mean Corpuscular Hemoglobin 30.6 pg (27.0-33.0); Mean Corpuscular Volume 101.1 fL (80.0-98.0); Mean Platelet Volume 9.2 fL (9.4-12.4); NRBC Pct Auto 0.4 /100WBC (0.0-0.2); Platelet Count 133 X10*3/uL (160-400); Red Blood Count 2.84 X10*6/uL (4.60-5.80); Red Cell Distribution Width 16.1 % (11.0-16.0)
[2023-03-31 14:42] LABS: WBC ABN SCTR FOR CBC 1
[2023-03-31 14:44] LABS: White Blood Count 45.1 X10*3/uL (4.8-10.8)
[2023-03-31 14:45] LABS: OBS Int Ctl Valid YES; OBS1 NEGATIVE (NEGATIVE)
[2023-03-31 14:49] LABS: Alanine Aminotransferase 10 U/L (0-40); Albumin Level 3.3 g/dL (3.5-5.0); Alkaline Phosphatase 88 U/L (39-117); Anion Gap 11 (12-20); Aspartate Amino Transferase 32 U/L (5-37); Bilirubin Total 0.5 mg/dL (0.0-1.0); Blood Urea Nitrogen 20 mg/dL (9-16); Calcium 9.1 mg/dL (8.4-10.2); Carbon Dioxide 28 mmol/L (22-29); Chloride 105 mmol/L (96-108); Creatinine Clr Calc Pharmacy 39.9; Estimated Glomerular Filt Rate > 60; Glucose Random 105 mg/dL (60-115); Lipase 79 U/L (8-78); Potassium 4.6 mmol/L (3.3-5.1); Sodium 139 mmol/L (135-145); Total Protein 5.8 g/dL (6.5-8.0)
[2023-03-31 14:53] VITALS: BP 141/70; PULSE 75; RESP 18; O2SAT 96
[2023-03-31 14:53] LABS: B Type Natriuretic Peptide 290 pg/mL (<100)
[2023-03-31 14:57] LABS: INTERNATIONAL NORM RATIO 0.9 (0.9-1.1); Prothrombin Time 11.3 SEC (11.1-13.3)
[2023-03-31 14:59] LABS: Partial Thromboplastin Time 26.1 SEC (26.0-36.4)
[2023-03-31 15:21] LABS: Atypical Lymph Absolute Manual 1.8 x10*3/uL; Atypical Lymphs Percent Manual 4 % (0-6); Band Neutrophils Percent 1 % (3-5); Lymphocytes Percent Manual 82 % (20-40); Monocytes Absolute Manual 0.9 X10*3/uL (0.1-1.2); Monocytes Percent Manual 2 % (2-11); Neutrophils Absolute Manual 5.4 X10*3/uL (2.0-8.3); Neutrophils Percent Manual 11 % (45-73)
[2023-03-31 15:22] LABS: Macrocytosis 1+ (5-14) /OIF; Platelet Estimate SLIGHTLY DECREASED (NORMAL); Platelet Morphology Comment NORMAL; Polychromasia 1+ (0-2) /OIF; RBC Morphology NOTED; Smudge Cells PRESENT
--- NOTE | 2023-03-31 15:29 | PC.NURSE ---
patient resting in bed, able to make needs known, family at the bedside. second IV line established in the right wrist
[2023-03-31 16:29] LABS: Appearance Urine Clear; Color Urine Yellow; Glucose Urine UA Negative (Negative); Leukocyte Esterase Urine Trace (Negative); Nitrite Urine Negative (Negative); PH 5.5 (5.0-9.0); UMIC TRIGGER UACC YES; Urine Blood Negative (Negative); Urine Ketones Negative (Negative); Urine Protein Negative (Neg-Trace)
[2023-03-31 16:31] LABS: Bacteria Urine None Seen (None Seen); Squamous Epithelial Cell Urine 0-2 /HPF (0-2); WBC Urine 0-5 /HPF (0-5)
[2023-03-31 16:52] VITALS: BP 129/65; PULSE 78; RESP 18; TEMP 37.2; O2SAT 95
[2023-03-31 16:58] VITALS: TEMP 37.4
--- NOTE | 2023-03-31 17:13 | PC.NURSE ---
patient in bed resting quietly, respirations equal and unlabored, shows no signs of distress. Family at bedside
[2023-03-31] MEDS: cefTRIAXone sodium 1 GM in 0.9 % Sodium Chloride 50 ML IV (17:36)
[2023-03-31 18:46] VITALS: BP 148/52; PULSE 86; RESP 18; TEMP 37.2; O2SAT 96
--- NOTE | 2023-03-31 18:46 | PC.NURSE ---
patient report given to FINANCIAL REPORTING CONSULTANT AJ at [facility]
== END 2023-03-31 18:57 | disposition short-term general hospital (02) ==
PROVIDERS: Physician Assistant; Emergency Provider Emergency Medicine; PCP Family Medicine
DX: S06.5XAA Traumatic subdural hemorrhage with loss of consciousness status unknown, initial encounter (principal); W19.XXXA Unspecified fall, initial encounter; N39.0 Urinary tract infection, site not specified; R62.7 Adult failure to thrive; Z68.24 Body mass index [BMI] 24.0-24.9, adult; R29.6 Repeated falls; Z91.81 History of falling; I10 Essential (primary) hypertension; E78.5 Hyperlipidemia, unspecified; F03.90 Unspecified dementia, unspecified severity, without behavioral disturbance, psychotic disturbance, mood disturbance, and anxiety; Z79.82 Long term (current) use of aspirin; Z79.899 Other long term (current) drug therapy; Y93.9 Activity, unspecified; Y92.019 Unspecified place in single-family (private) house as the place of occurrence of the external cause; Y99.9 Unspecified external cause status
CPT/HCPCS: 36415; 51798; 70450; 71045; 80053; 81001; 82272; 83690; 83880; 85007; 85027; 85610; 85730; 86850; 86900; 86901; 93005; 96365; 99285; J0696

== ENCOUNTER 2023-04-20 14:11 | Outpatient (REF) | payer MEDICARE, SELFPAY ==
[2023-04-20 15:05] LABS: Hematocrit 30.6 % (42.0-52.0); Hemoglobin 8.9 g/dl (14.0-18.0); Mean Corpuscular HGB Conc 29.1 g/dl (31.0-36.0); Mean Corpuscular Hemoglobin 30.8 pg (27.0-33.0); Mean Corpuscular Volume 105.9 fL (80.0-98.0); Mean Platelet Volume 9.4 fL (9.4-12.4); NRBC Pct Auto 0.4 /100WBC (0.0-0.2); Red Blood Count 2.89 X10*6/uL (4.60-5.80); Red Cell Distribution Width 16.1 % (11.0-16.0)
[2023-04-20 15:11] LABS: Platelet Count 89 X10*3/uL (160-400); WBC ABN SCTR FOR CBC 1
[2023-04-20 15:15] LABS: White Blood Count 45.4 X10*3/uL (4.8-10.8)
[2023-04-20 15:28] LABS: Atypical Lymph Absolute Manual 0.9 x10*3/uL; Atypical Lymphs Percent Manual 2 % (0-6); Band Neutrophils Percent 2 % (3-5); Lymphocytes Absolute Manual 35.4 X10*3/uL (1.2-4.9); Lymphocytes Percent Manual 78 % (20-40); Monocytes Absolute Manual 1.8 X10*3/uL (0.1-1.2); Monocytes Percent Manual 4 % (2-11); Neutrophils Absolute Manual 7.3 X10*3/uL (2.0-8.3); Neutrophils Percent Manual 14 % (45-73)
[2023-04-20 15:32] LABS: Macrocytosis 1+ (5-14) /OIF; RBC Morphology NOTED
[2023-04-20 15:33] LABS: Platelet Estimate DECREASED (NORMAL); Platelet Morphology Comment NORMAL; Polychromasia 1+ (0-2) /OIF
[2023-04-20 15:41] LABS: Blood Urea Nitrogen 20 mg/dL (9-16); Estimated Glomerular Filt Rate > 60; Magnesium 2.1 mg/dL (1.6-2.6)
== END 2023-04-20 14:12 | disposition home or self-care (01) ==
LOC: HO.LAB 14:11
PROVIDERS: PCP Family Medicine; Visit Provider Family Medicine
DX: I10 Essential (primary) hypertension (principal); C91.10 Chronic lymphocytic leukemia of B-cell type not having achieved remission; R53.83 Other fatigue
CPT/HCPCS: 36415; 82565; 83735; 84520; 85007; 85025; 85027

== ENCOUNTER 2023-06-23 12:39 | Outpatient (REF) | payer MEDICARE, SELFPAY ==
[2023-06-23 13:01] LABS: Hematocrit 30.2 % (42.0-52.0); Hemoglobin 8.8 g/dl (14.0-18.0); Mean Corpuscular HGB Conc 29.1 g/dl (31.0-36.0); Mean Corpuscular Hemoglobin 30.3 pg (27.0-33.0); Mean Corpuscular Volume 104.1 fL (80.0-98.0); Mean Platelet Volume 9.6 fL (9.4-12.4); NRBC Pct Auto 0.7 /100WBC (0.0-0.2); Red Cell Distribution Width 15.9 % (11.0-16.0)
[2023-06-23 13:16] LABS: Platelet Count 76 X10*3/uL (160-400); WBC ABN SCTR FOR CBC 1; White Blood Count 31.8 X10*3/uL (4.8-10.8)
[2023-06-23 13:42] LABS: Anion Gap 12 (12-20); Blood Urea Nitrogen 17 mg/dL (9-16); Carbon Dioxide 27 mmol/L (22-29); Chloride 107 mmol/L (96-108); Estimated Glomerular Filt Rate > 60; Iron 49 mcg/dL (45-160); Percent Iron Saturation 18 % (15-50); Potassium 4.8 mmol/L (3.3-5.1); Sodium 141 mmol/L (135-145); Total Iron Binding Capacity 278 mcg/dL (228-428); Unsaturated Iron Binding 229 ug/dL
[2023-06-23 14:04] LABS: Eosinophils Percent Manual 3 % (0-4); Lymphocytes Absolute Manual 28.3 X10*3/uL (1.2-4.9); Lymphocytes Percent Manual 89 % (20-40); Monocytes Percent Manual 3 % (2-11); Neutrophils Percent Manual 5 % (45-73); Nucleated Red Blood Cells 1 /100WBC (0-0)
[2023-06-23 14:05] LABS: Macrocytosis 1+ (5-14) /OIF; RBC Morphology NOTED
[2023-06-23 14:06] LABS: Band Neutrophils Percent 0 % (3-5); Hypochromasia 1+ (5-14) /OIF; Neutrophils Absolute Manual 1.6 X10*3/uL (2.0-8.3); Platelet Estimate DECREASED (NORMAL); Platelet Morphology Comment NORMAL; Polychromasia 1+ (0-2) /OIF; Smudge Cells PRESENT
== END 2023-06-23 12:40 | disposition home or self-care (01) ==
LOC: HO.LAB 12:39
PROVIDERS: PCP Family Medicine; Visit Provider Family Medicine
DX: I10 Essential (primary) hypertension (principal); D50.8 Other iron deficiency anemias; C91.10 Chronic lymphocytic leukemia of B-cell type not having achieved remission
CPT/HCPCS: 36415; 80051; 82565; 83540; 84520; 85007; 85025; 85027

== ENCOUNTER 2023-10-10 13:45 | Outpatient (REF) | payer MEDICARE, SELFPAY ==
--- NOTE | ~2023-10-10 | XR_ITS ---
EXAMINATION: XR CHEST CLINICAL INFORMATION: SOB, left pleural effusion COMPARISON: None available. TECHNIQUE: 2 views of the chest were obtained. FINDINGS: There is a small left pleural effusion with underlying atelectasis. The right lung and left upper lung is expanded and clear. Heart size and pulmonary vascularity is normal. No gross bony abnormality seen XR/XR chest 2V IMPRESSION: Small left pleural effusion with underlying atelectasis.
[2023-10-10 14:52] LABS: Hematocrit 25.8 % (42.0-52.0); Hemoglobin 7.6 g/dl (14.0-18.0); Mean Corpuscular HGB Conc 29.5 g/dl (31.0-36.0); Mean Corpuscular Hemoglobin 33.2 pg (27.0-33.0); Red Blood Count 2.29 X10*6/uL (4.60-5.80)
[2023-10-10 15:05] LABS: Mean Corpuscular Volume 112.7 fL (80.0-98.0); NRBC Pct Auto 2.6 /100WBC (0.0-0.2); Platelet Count 55 X10*3/uL (160-400); WBC ABN SCTR FOR CBC 1
[2023-10-10 15:08] LABS: White Blood Count 43.3 X10*3/uL (4.8-10.8)
[2023-10-10 15:21] LABS: Atypical Lymph Absolute Manual 0.9 x10*3/uL; Atypical Lymphs Percent Manual 2 % (0-6); Band Neutrophils Percent 3 % (3-5); Lymphocytes Absolute Manual 35.1 X10*3/uL (1.2-4.9); Lymphocytes Percent Manual 81 % (20-40); Monocytes Absolute Manual 2.6 X10*3/uL (0.1-1.2); Monocytes Percent Manual 6 % (2-11); Neutrophils Absolute Manual 4.8 X10*3/uL (2.0-8.3); Neutrophils Percent Manual 8 % (45-73); Nucleated Red Blood Cells 1 /100WBC (0-0)
[2023-10-10 15:22] LABS: RBC Morphology NOTED; Smudge Cells PRESENT
[2023-10-10 15:23] LABS: Macrocytosis 1+ (5-14) /OIF; Platelet Estimate DECREASED (NORMAL); Platelet Morphology Comment NORMAL
[2023-10-10 15:51] LABS: Alanine Aminotransferase 7 U/L (0-40); Alkaline Phosphatase 102 U/L (39-117); Anion Gap 10 (12-20); Aspartate Amino Transferase 31 U/L (5-37); Bilirubin Total 0.8 mg/dL (0.0-1.0); Blood Urea Nitrogen 15 mg/dL (9-16); Calcium 8.5 mg/dL (8.4-10.2); Carbon Dioxide 29 mmol/L (22-29); Chloride 112 mmol/L (96-108); Estimated Glomerular Filt Rate > 60; Glucose Random 114 mg/dL (60-115); Magnesium 2.1 mg/dL (1.6-2.6); Potassium 4.7 mmol/L (3.3-5.1); Sodium 146 mmol/L (135-145); Total Protein 5.2 g/dL (6.5-8.0)
== END 2023-10-10 13:46 | disposition home or self-care (01) ==
LOC: HO.XRAY 13:45
PROVIDERS: PCP Family Medicine; Visit Provider Family Medicine
DX: R06.02 Shortness of breath (principal); I10 Essential (primary) hypertension; C91.10 Chronic lymphocytic leukemia of B-cell type not having achieved remission; R27.0 Ataxia, unspecified; J90 Pleural effusion, not elsewhere classified
CPT/HCPCS: 36415; 71046; 80053; 83735; 85007; 85025; 85027

== ENCOUNTER 2023-10-18 07:18 | Outpatient (REF) | payer MEDICARE, SELFPAY ==
[2023-10-18] VITALS (19 sets, daily range): BP systolic 116–146; BP diastolic 55–68; PULSE 62–76; RESP 16–20; TEMP 37.1–37.4; O2SAT 94–98
--- NOTE | 2023-10-18 07:38 | PC.NURSE ---
phlebotomy at bedside for t&s draw
== END 2023-10-18 07:19 | disposition home or self-care (01) ==
LOC: HO.MDS 07:18
PROVIDERS: Visit Provider Family Medicine
DX: D64.9 Anemia, unspecified (principal); R06.02 Shortness of breath; R53.1 Weakness
CPT/HCPCS: 36430; 86850; 86900; 86901; 86923; P9016

== ENCOUNTER 2023-11-11 13:48 | Outpatient (REF) | payer MEDICARE, SELFPAY ==
--- NOTE | ~2023-11-11 | XR_ITS ---
EXAMINATION: XR CHEST CLINICAL INFORMATION: Cough; left pleural effusion. COMPARISON: Prior chest radiographs, most recently 10/10/2023. TECHNIQUE: Frontal and lateral views of the chest were obtained. FINDINGS: The heart, great vessels, pulmonary vasculature and mediastinum are stable. There is atherosclerotic dilatation of the aortic knob. There is a relatively stable small to moderate left pleural effusion as compared with 10/10/2023. No pneumothorax is seen. There is no acute osseous abnormality. There is a mild thoracic dextroscoliosis. XR/XR chest 2V IMPRESSION: A relatively stable small to moderate left pleural effusion is seen. There is no congestive heart failure. No infiltrate is noted.
[2023-11-11 15:00] LABS: Hematocrit 27.8 % (42.0-52.0); Hemoglobin 8.5 g/dl (14.0-18.0); Mean Corpuscular HGB Conc 30.6 g/dl (31.0-36.0); Mean Corpuscular Hemoglobin 32.8 pg (27.0-33.0); Mean Corpuscular Volume 107.3 fL (80.0-98.0); Mean Platelet Volume 9.8 fL (9.4-12.4); Red Blood Count 2.59 X10*6/uL (4.60-5.80); Red Cell Distribution Width 16.3 % (11.0-16.0)
[2023-11-11 15:07] LABS: NRBC Pct Auto 1.5 /100WBC (0.0-0.2); Platelet Count 56 X10*3/uL (160-400); WBC ABN SCTR FOR CBC 1
[2023-11-11 15:42] LABS: Anion Gap 10 (12-20); Blood Urea Nitrogen 16 mg/dL (9-16); Carbon Dioxide 28 mmol/L (22-29); Chloride 110 mmol/L (96-108); Estimated Glomerular Filt Rate > 60; Potassium 4.4 mmol/L (3.3-5.1); Sodium 144 mmol/L (135-145)
[2023-11-11 15:46] LABS: Atypical Lymphs Percent Manual 4 % (0-6); Band Neutrophils Percent 1 % (3-5); Lymphocytes Percent Manual 75 % (20-40); Monocytes Percent Manual 4 % (2-11); Neutrophils Percent Manual 16 % (45-73); Nucleated Red Blood Cells 3 /100WBC (0-0)
[2023-11-11 15:47] LABS: Macrocytosis 1+ (5-14) /OIF; Microcytosis 1+ (5-14) /OIF; Platelet Estimate DECREASED (NORMAL); Platelet Morphology Comment NORMAL; Polychromasia 1+ (0-2) /OIF; RBC Morphology NOTED; Smudge Cells PRESENT
[2023-11-11 15:48] LABS: WBC Morphology Comment DYSMORPHIC
[2023-11-11 15:51] LABS: Atypical Lymph Absolute Manual 1.3 x10*3/uL; Monocytes Absolute Manual 1.3 X10*3/uL (0.1-1.2); Neutrophils Absolute Manual 5.4 X10*3/uL (2.0-8.3)
== END 2023-11-11 13:49 | disposition home or self-care (01) ==
LOC: HO.XRAY 13:48
PROVIDERS: PCP Family Medicine; Visit Provider Family Medicine
DX: I10 Essential (primary) hypertension (principal); C91.10 Chronic lymphocytic leukemia of B-cell type not having achieved remission; R05.9 Cough, unspecified; J90 Pleural effusion, not elsewhere classified
CPT/HCPCS: 36415; 71046; 80051; 82565; 84520; 85007; 85025; 85027

== ENCOUNTER 2023-12-12 13:47 | Outpatient (REF) | payer MEDICARE, SELFPAY ==
[2023-12-12 15:02] LABS: Hematocrit 26.2 % (42.0-52.0); Hemoglobin 8.1 g/dl (14.0-18.0); Immature Retic Fraction 40.2 % (2.3-13.4); Mean Corpuscular HGB Conc 30.9 g/dl (31.0-36.0); Mean Corpuscular Hemoglobin 34.6 pg (27.0-33.0); Mean Platelet Volume 10.2 fL (9.4-12.4); PLT CLUMP 1; Red Blood Count 2.34 X10*6/uL (4.60-5.80); Red Cell Distribution Width 17.2 % (11.0-16.0); Retic HGB Equivalent 32.9 pg (30.0-35.0); Reticulocyte Percent 8.5 % (0.5-1.8); Reticulocytes Absolute 0.198 X10*6/uL (0.026-0.095)
[2023-12-12 15:03] LABS: NRBC Pct Auto 2.8 /100WBC (0.0-0.2); WBC ABN SCTR FOR CBC 1
[2023-12-12 15:14] LABS: Iron 69 mcg/dL (45-160); Percent Iron Saturation 27 % (15-50); Total Iron Binding Capacity 252 mcg/dL (228-428); Unsaturated Iron Binding 183 ug/dL
[2023-12-12 15:20] LABS: White Blood Count 30.8 X10*3/uL (4.8-10.8)
[2023-12-12 15:53] LABS: Atypical Lymph Absolute Manual 0.6 x10*3/uL; Atypical Lymphs Percent Manual 2 % (0-6); Band Neutrophils Percent 1 % (3-5); Basophilic Stippling 1+ (0-2) /OIF; Eosinophils Absolute Manual 0.3 X10*3/uL (0.0-0.4); Eosinophils Percent Manual 1 % (0-4); Lymphocytes Absolute Manual 24.3 X10*3/uL (1.2-4.9); Lymphocytes Percent Manual 79 % (20-40); Macrocytosis 1+ (5-14) /OIF; Monocytes Absolute Manual 1.2 X10*3/uL (0.1-1.2); Monocytes Percent Manual 4 % (2-11); Neutrophils Absolute Manual 4.3 X10*3/uL (2.0-8.3); Neutrophils Percent Manual 13 % (45-73); Nucleated Red Blood Cells 7 /100WBC (0-0); Ovalocytes 1+ (5-14) /OIF; Platelet Estimate DECREASED (NORMAL); Platelet Morphology Comment NORMAL; Polychromasia 1+ (0-2) /OIF; RBC Morphology NOTED
[2023-12-13 20:13] LABS: Haptoglobin 107 mg/dL (43-212)
== END 2023-12-12 13:48 | disposition home or self-care (01) ==
LOC: HO.LAB 13:47
PROVIDERS: PCP Family Medicine; Visit Provider Family Medicine
DX: D64.9 Anemia, unspecified (principal)
CPT/HCPCS: 36415; 83010; 83540; 85007; 85025; 85027; 85045; 86850; 86880